=== PATIENT | male | born 1995 | race American Indian/Alaskan Native ===

== ENCOUNTER 2019-07-23 14:17 | Observation (INO) | payer OTHER ==
--- NOTE | 2019-07-23 17:10 | Event Note ---
ED Screening Note Date of service: 07/23/19 Time: 17:06 ED Screening Note: This is a 24 y.o. M. that presents to the ER with chest pain radiating to back. Patient reports history of sickle cell and think he is in crisis. Reports sharp pain with inhalation and SOB. This initial assessment/diagnostic orders/clinical plan/treatment(s) is/are subject to change based on patients health status, clinical progression and re- assessment by fellow clinical providers in the ED. Further treatment and workup at subsequent clinical providers discretion. Patient/guardian urged not to elope from the ED as their condition may be serious if not clinically assessed and managed. Initial orders include: Labs CXR
--- NOTE | 2019-07-23 17:55 | XRay Report ---
CHEST PA AND LATERAL VIEWS INDICATION: chest pain and dyspnea. COMPARISON: None FINDINGS: Support devices: None Heart: Normal Lungs/Pleura: No acute pulmonary or pleural findings. IMPRESSION: 1. No significant abnormality. Signer Name: Jose Aguilar MD Signed: 07/23/2019 5:51 PM Workstation Name: [id number]
[2019-07-23 19:04] LABS: Hematocrit 35.8 % (35.5-45.6); Hemoglobin 12.5 gm/dl (11.8-15.2); Mean Corpuscular HGB Conc 35 % (32-34); Mean Corpuscular Volume 77 fl (84-94); Platelet Count 315 K/mm3 (140-440); Red Blood Count 4.67 M/mm3 (3.65-5.03); Red Cell Distribution Width 19.1 % (13.2-15.2)
[2019-07-23] MEDS ORDERED: KETOROLAC 60 MG/2 ML INJ IM ONE (20:25)
[2019-07-23] MEDS ORDERED: HYDROmorphone 1 MG/1 ML INJ IM ONE (20:25)
[2019-07-23] MEDS ORDERED: ONDANSETRON 4 MG/2 ML INJ IM ONE (20:25)
--- NOTE | 2019-07-23 21:11 | Emergency Department Report ---
ED General Adult HPI - General Chief complaint: Sickle Cell Crisis Stated complaint: SICKLE CELL CRISIS Time Seen by Provider: 07/23/19 17:06 Source: patient Mode of arrival: Ambulatory Limitations: No Limitations - History of Present Illness Initial comments: The patient presents to the emergency department with a chief complaint of sickle cell crisis. Patient states that for the last 24 hours since had pain to his back, ribs, hips. Patient describes the pain as a 10 out of 10 consistent with prior sickle cell crises. Patient denies any chest pain, shortness breath, or headache. -: Sudden Location: back, pelvis, upper extremity Radiation: non-radiation Severity scale (0 -10): 10 Quality: stabbing, sharp Consistency: constant Improves with: none Worsens with: none Associated Symptoms: denies other symptoms Treatments Prior to Arrival: none - Related Data Allergies Allergy/AdvReac Type Severity Reaction Status Date / Time No Known Allergies Allergy Unverified 07/23/19 17:09 ED Review of Systems ROS: Stated complaint: SICKLE CELL CRISIS Other details as noted in HPI Comment: All other systems reviewed and negative Constitutional: denies: chills, fever Eyes: denies: eye pain, eye discharge, vision change ENT: denies: ear pain, throat pain Respiratory: denies: cough, shortness of breath, wheezing Cardiovascular: denies: chest pain, palpitations Endocrine: no symptoms reported Gastrointestinal: denies: abdominal pain, nausea, diarrhea Genitourinary: denies: urgency, dysuria Musculoskeletal: denies: back pain, joint swelling, arthralgia Skin: denies: rash, lesions Neurological: denies: headache, weakness, paresthesias Psychiatric: denies: anxiety, depression Hematological/Lymphatic: denies: easy bleeding, easy bruising ED Past Medical Hx - Social History Smoking Status: Never Smoker Substance Use Type: None ED Physical Exam - General Limitations: No Limitations General appearance: alert, in no apparent distress - Head Head exam: Present: atraumatic, normocephalic - Eye Eye exam: Present: normal appearance - ENT ENT exam: Present: mucous membranes dry - Neck Neck exam: Present: normal inspection - Respiratory Respiratory exam: Present: normal lung sounds bilaterally. Absent: respiratory distress - Cardiovascular Cardiovascular Exam: Present: normal rhythm, tachycardia. Absent: systolic murmur, diastolic murmur, rubs, gallop - GI/Abdominal GI/Abdominal exam: Present: soft, normal bowel sounds. Absent: distended, tenderness - Rectal Rectal exam: Present: deferred - Extremities Exam Extremities exam: Present: normal inspection - Back Exam Back exam: Present: normal inspection - Neurological Exam Neurological exam: Present: alert, oriented X3, CN II-XII intact. Absent: motor sensory deficit - Psychiatric Psychiatric exam: Present: normal affect, normal mood - Skin Skin exam: Present: warm, dry, intact, normal color. Absent: rash ED Course Vital Signs 07/23/19 17:07 Temperature 98.7 F Pulse Rate 74 Respiratory 18 Rate Blood Pressure 119/100 O2 Sat by Pulse 99 Oximetry ED Medical Decision Making - Lab Data Result diagrams: 07/23/19 18:26 Lab Results 07/23/19 Range/Units 18:26 WBC 8.5 (4.5-11.0) K/mm3 RBC 4.67 (3.65-5.03) M/mm3 Hgb 12.5 (11.8-15.2) gm/dl Hct 35.8 (35.5-45.6) % MCV 77 L (84-94) fl MCH 27 L (28-32) pg MCHC 35 H (32-34) % RDW 19.1 H (13.2-15.2) % Plt Count 315 (140-440) K/mm3 [place] % (Auto) Shipping And Receiving Assistant Add Manual Diff Complete Total Counted 100 Seg Neuts % (Manual) 57.0 (40.0-70.0) % Band Neutrophils % 0 % Lymphocytes % (Manual) 32.0 (13.4-35.0) % Reactive Lymphs % (Man) 0 % Monocytes % (Manual) 9.0 H (0.0-7.3) % Eosinophils % (Manual) 2.0 (0.0-4.3) % Basophils % (Manual) 0 (0.0-1.8) % Metamyelocytes % 0 % Myelocytes % 0 % Promyelocytes % 0 % Blast Cells % 0 % Nucleated RBC % Not Reportable Seg Neutrophils # Man 4.8 (1.8-7.7) K/mm3 Band Neutrophils # 0.0 K/mm3 Lymphocytes # (Manual) 2.7 (1.2-5.4) K/mm3 Abs React Lymphs (Man) 0.0 K/mm3 Monocytes # (Manual) 0.8 (0.0-0.8) K/mm3 Eosinophils # (Manual) 0.2 (0.0-0.4) K/mm3 Basophils # (Manual) 0.0 (0.0-0.1) K/mm3 Metamyelocytes # 0.0 K/mm3 Myelocytes # 0.0 K/mm3 Promyelocytes # 0.0 K/mm3 Blast Cells # 0.0 K/mm3 WBC Morphology Not Reportable Hypersegmented Neuts Not Reportable Hyposegmented Neuts Not Reportable Hypogranular Neuts Not Reportable Smudge Cells Not Reportable Toxic Granulation Not Reportable Toxic Vacuolation Not Reportable Dohle Bodies Not Reportable Pelger-Huet Anomaly Not Reportable Britt Rods Not Reportable Platelet Estimate Consistent w auto Clumped Platelets Not Reportable Plt Clumps, EDTA Not Reportable Large Platelets Not Reportable Giant Platelets Not Reportable Platelet Satelliting Not Reportable Plt Morphology Comment Not Reportable RBC Morphology Not Reportable Dimorphic RBCs Not Reportable Polychromasia Not Reportable Hypochromasia 1+ Poikilocytosis Not Reportable Anisocytosis 1+ Microcytosis Not Reportable Macrocytosis Not Reportable Spherocytes Not Reportable Pappenheimer Bodies Not Reportable Sickle Cells Not Reportable Target Cells 2+ Tear Drop Cells Not Reportable Ovalocytes Not Reportable Helmet Cells Not Reportable Shetty-[place] Bodies Not Reportable [place] Rings Not Reportable [place] Cells Not Reportable Bite Cells Not Reportable Crenated Cell Not Reportable Elliptocytes Not Reportable Acanthocytes (Spur) Not Reportable Rouleaux Not Reportable Hemoglobin C Crystals Not Reportable Schistocytes Not Reportable Malaria parasites Not Reportable Percent Retic 2.64 H (0.78-2.58) % Ketan Bodies Not Reportable Hem Pathologist Commnt No - Radiology Data Radiology results: report reviewed - Medical Decision Making Patient had a liter IV fluid, 60 mg of Toradol IM and 4 mg of Dilaudid without improvement of his symptoms. Critical care attestation.: If time is entered above; I have spent that time in minutes in the direct care of this critically ill patient, excluding procedure time. ED Disposition Clinical Impression: Sickle cell pain crisis Disposition: OP ADMIT IP TO THIS HOSP Is pt being admited?: Yes Does the pt Need Aspirin: No Condition: Fair
[2019-07-23] MEDS ORDERED: HYDROmorphone 1 MG/1 ML INJ IV ONE ×3 (21:37→22:30)
[2019-07-23] MEDS ORDERED: SODIUM CHLORIDE 0.9% 1000 ML 1,000 ML IV ONE (21:38)
[2019-07-23 22:58] LABS: Basophils % (Manual) 0 % (0.0-1.8); Total Cells Counted 100
[2019-07-23 22:59] LABS: Anisocytosis 1+; Target Cells 2+
[2019-07-23 23:00] LABS: Hypochromasia 1+; Platelet Estimate Consistent w Auto
[2019-07-24] MEDS ORDERED: HYDROmorphone 1 MG/1 ML INJ IV PRN (00:08)
[2019-07-24] MEDS ORDERED: ACETAMINOPHEN 325 MG TAB PO PRN (00:09)
[2019-07-24] MEDS ORDERED: ONDANSETRON 4 MG/2 ML INJ IV PRN (00:09)
[2019-07-24] MEDS ORDERED: SODIUM CHLORIDE 0.9% 1000 ML 1,000 ML IV SCH (00:15)
[2019-07-24] MEDS: HYDROmorphone 1 MG/1 ML INJ IV PRN ×5 (01:30→11:10)
[2019-07-24] MEDS ORDERED: HYDROmorphone 1 MG/1 ML INJ ONE (01:31)
[2019-07-24] MEDS: TEMAZEPAM 15 MG CAP PO SCH ×2 (02:30→03:31)
--- NOTE | 2019-07-24 06:20 | History and Physical Report ---
CHIEF COMPLAINT: Generalized body pain, including chest pain. HISTORY OF PRESENTING ILLNESS: The patient is a 24-year-old male with past medical history of sickle cell anemia, presenting with generalized body pain and also chest pain that occurs with movement and breathing. Symptoms started yesterday morning, 07/23/2019. There was no history of shortness of breath. No history of nausea or vomiting and no history of fever, chills or cough. The patient presented to the Emergency Room, where he was given about 4 doses of Dilaudid 1 mg about 1 hour apart with 1 dose of Toradol and still continued to have pain. There is no history of dizziness or jaundice and there is also no history of change in mental status. PAST MEDICAL HISTORY: Pertinent for sickle cell anemia. PAST SURGICAL HISTORY: Unremarkable. FAMILY HISTORY: There is no family history of sickle cell anemia. SOCIAL HISTORY: The patient does not smoke, does not drink alcohol and does not use illicit drug. MEDICATIONS: The patient said he was on folic acid, hydroxyurea and some pain around some opioid pain medication, but could not afford them because of problem with his insurance. ALLERGIES: There are no known drug allergies. REVIEW OF SYSTEMS: CONSTITUTIONAL: There is no fever, no chills, no diaphoresis. HEENT: There is no headache or sore throat. CARDIOVASCULAR SYSTEM: There is pleuritic chest pain with no orthopnea. RESPIRATORY SYSTEM: There is no shortness of breath or cough. GASTROINTESTINAL SYSTEM: There is no nausea, no vomiting, no abdominal pain, diarrhea or constipation. NEUROLOGICAL SYSTEM: There is no numbness, no dizziness, no altered mental status. MUSCULOSKELETAL SYSTEM: There is generalized body pain, with no joint swelling. DERMATOLOGICAL SYSTEM: There is no skin rash and there is no jaundice. There is no itching. GENITOURINARY SYSTEM: There is no dysuria, hematuria, or flank pain. Rest of system review is normal. PHYSICAL EXAMINATION: GENERAL: At the time of exam, the patient was found to be alert, oriented x3 and in mild to moderate distress due to generalized body pain. VITAL SIGNS: At the initial time of presentation showed temperature of 98.7 degrees Fahrenheit, pulse of 74, respirations 18, blood pressure 119/100, O2 sat of 99% on room air. HEENT: Showed pupils to be equal, round, reactive to light and accommodating. Extraocular muscles are intact. NECK: Supple with no JVD or carotid bruit. CARDIOVASCULAR SYSTEM: Showed normal first and second heart sounds with no gallops or murmurs. RESPIRATORY SYSTEM: Showed good air entry on both sides of the lungs with no abnormal breath sounds. GASTROINTESTINAL SYSTEM: Show abdomen to be full, soft, nontender with no organomegaly or rigidity. NEUROLOGIC: Showed no focal deficit. MUSCULOSKELETAL SYSTEM: Showed no joint swelling or tenderness. DERMATOLOGICAL SKIN: Showed no skin rash. GENITOURINARY SYSTEM: Showing no costovertebral angle tenderness. PERTINENT LABORATORY AND IMAGING STUDIES: The patient has CBC done with normal white count, normal hemoglobin and normal hematocrit with CBC differential showing elevated monocyte count of 9%, and the patient's percentage retic value is high with a value of 2.64. IMAGING STUDIES: The patient had chest x-ray done that shows no acute cardiopulmonary lesion. DIAGNOSIS: Sickle cell pain crisis. PLAN OF CARE: 1. The patient will be placed on observation on the medical/surgical harris. 2. The patient will be on IV normal saline running at 125 mL an hour. 3. The patient will be on IV Dilaudid 2 mg q.3 hours p.r.n. pain. 4. The patient will be on IV Zofran 4 mg every 8 hours as needed for nausea and vomiting and will be on temazepam 15 mg by mouth at night x 1 dose. 5. The patient will be on Tylenol 650 mg by mouth every 4 hour for fever and headache. JOB# [id number] OCN/NTS
[2019-07-24 08:41] VITALS: BP 117/76
[2019-07-24] MEDS ORDERED: ENOXAPARIN 30 MG/0.3 ML INJ SUB-Q SCH (10:00)
--- NOTE | 2019-07-24 10:12 | Progress Note ---
Hospitalist Physical - Constitutional Vitals: Temp Pulse Resp BP Pulse Ox 98.2 F 63 18 117/76 100 07/24/19 04:30 07/24/19 08:39 07/24/19 04:30 07/24/19 08:39 07/24/19 08:39 Results - Labs CBC & Chem 7: 07/23/19 18:26 Labs: Laboratory Last Values WBC 8.5 K/mm3 (4.5-11.0) 07/23/19 18:26 RBC 4.67 M/mm3 (3.65-5.03) 07/23/19 18:26 Hgb 12.5 gm/dl (11.8-15.2) 07/23/19 18:26 Hct 35.8 % (35.5-45.6) 07/23/19 18:26 MCV 77 fl (84-94) L 07/23/19 18:26 MCH 27 pg (28-32) L 07/23/19 18:26 MCHC 35 % (32-34) H 07/23/19 18:26 RDW 19.1 % (13.2-15.2) H 07/23/19 18:26 Plt Count 315 K/mm3 (140-440) 07/23/19 18:26 [place] % (Auto) Field Marketing Lead 07/23/19 18:26 Add Manual Diff Complete 07/23/19 18:26 Total Counted 100 07/23/19 18:26 Seg Neuts % (Manual) 57.0 % (40.0-70.0) 07/23/19 18:26 Band Neutrophils % 0 % 07/23/19 18:26 Lymphocytes % (Manual) 32.0 % (13.4-35.0) 07/23/19 18:26 Reactive Lymphs % (Man) 0 % 07/23/19 18:26 Monocytes % (Manual) 9.0 % (0.0-7.3) H 07/23/19 18:26 Eosinophils % (Manual) 2.0 % (0.0-4.3) 07/23/19 18:26 Basophils % (Manual) 0 % (0.0-1.8) 07/23/19 18:26 Metamyelocytes % 0 % 07/23/19 18:26 Myelocytes % 0 % 07/23/19 18:26 Promyelocytes % 0 % 07/23/19 18:26 Blast Cells % 0 % 07/23/19 18:26 Nucleated RBC % Not Reportable 07/23/19 18:26 Seg Neutrophils # Man 4.8 K/mm3 (1.8-7.7) 07/23/19 18:26 Band Neutrophils # 0.0 K/mm3 07/23/19 18:26 Lymphocytes # (Manual) 2.7 K/mm3 (1.2-5.4) 07/23/19 18:26 Abs React Lymphs (Man) 0.0 K/mm3 07/23/19 18:26 Monocytes # (Manual) 0.8 K/mm3 (0.0-0.8) 07/23/19 18:26 Eosinophils # (Manual) 0.2 K/mm3 (0.0-0.4) 07/23/19 18:26 Basophils # (Manual) 0.0 K/mm3 (0.0-0.1) 07/23/19 18:26 Metamyelocytes # 0.0 K/mm3 07/23/19 18:26 Myelocytes # 0.0 K/mm3 07/23/19 18:26 Promyelocytes # 0.0 K/mm3 07/23/19 18:26 Blast Cells # 0.0 K/mm3 07/23/19 18:26 WBC Morphology Not Reportable 07/23/19 18:26 Hypersegmented Neuts Not Reportable 07/23/19 18:26 Hyposegmented Neuts Not Reportable 07/23/19 18:26 Hypogranular Neuts Not Reportable 07/23/19 18:26 Smudge Cells Not Reportable 07/23/19 18:26 Toxic Granulation Not Reportable 07/23/19 18:26 Toxic Vacuolation Not Reportable 07/23/19 18:26 Dohle Bodies Not Reportable 07/23/19 18:26 Pelger-Huet Anomaly Not Reportable 07/23/19 18:26 Britt Rods Not Reportable 07/23/19 18:26 Platelet Estimate Consistent w auto 07/23/19 18:26 Clumped Platelets Not Reportable 07/23/19 18:26 Plt Clumps, EDTA Not Reportable 07/23/19 18:26 Large Platelets Not Reportable 07/23/19 18:26 Giant Platelets Not Reportable 07/23/19 18:26 Platelet Satelliting Not Reportable 07/23/19 18:26 Plt Morphology Comment Not Reportable 07/23/19 18:26 RBC Morphology Not Reportable 07/23/19 18:26 Dimorphic RBCs Not Reportable 07/23/19 18:26 Polychromasia Not Reportable 07/23/19 18:26 Hypochromasia 1+ 07/23/19 18:26 Poikilocytosis Not Reportable 07/23/19 18:26 Anisocytosis 1+ 07/23/19 18:26 Microcytosis Not Reportable 07/23/19 18:26 Macrocytosis Not Reportable 07/23/19 18:26 Spherocytes Not Reportable 07/23/19 18:26 Pappenheimer Bodies Not Reportable 07/23/19 18:26 Sickle Cells Not Reportable 07/23/19 18:26 Target Cells 2+ 07/23/19 18:26 Tear Drop Cells Not Reportable 07/23/19 18:26 Ovalocytes Not Reportable 07/23/19 18:26 Helmet Cells Not Reportable 07/23/19 18:26 Shetty-[place] Bodies Not Reportable 07/23/19 18:26 [place] Rings Not Reportable 07/23/19 18:26 [place] Cells Not Reportable 07/23/19 18:26 Bite Cells Not Reportable 07/23/19 18:26 Crenated Cell Not Reportable 07/23/19 18:26 Elliptocytes Not Reportable 07/23/19 18:26 Acanthocytes (Spur) Not Reportable 07/23/19 18:26 Rouleaux Not Reportable 07/23/19 18:26 Hemoglobin C Crystals Not Reportable 07/23/19 18:26 Schistocytes Not Reportable 07/23/19 18:26 Malaria parasites Not Reportable 07/23/19 18:26 Percent Retic 2.64 % (0.78-2.58) H 07/23/19 18:26 Ketan Bodies Not Reportable 07/23/19 18:26 Hem Pathologist Commnt No 07/23/19 18:26 Active Medications - Current Medications Current Medications: Generic Name Dose Route Start Last Admin Trade Name Freq PRN Reason Stop Dose Admin Acetaminophen 650 mg 07/24/19 00:09 Tylenol PO Q4H PRN Pain, Mild (1-3) Enoxaparin Sodium 30 mg 07/24/19 10:00 Enoxaparin SUB-Q QDAY SHARON Hydromorphone HCl 1 mg 07/24/19 00:40 07/24/19 08:58 Dilaudid IV 1 mg Q2H PRN Administration Pain, Moderate (4-6) Sodium Chloride 1,000 mls @ 125 mls/hr 07/24/19 00:15 07/24/19 01:59 Nacl 0.9% 1000 Ml IV 125 mls/hr DIRECT SHARON Administration Ondansetron HCl 4 mg 07/24/19 00:09 Zofran IV Q8H PRN Nausea And Vomiting Temazepam 15 mg 07/24/19 02:10 07/24/19 03:31 Restoril PO 15 mg QHS SHARON Administration
[2019-07-24] MEDS ORDERED: HYDROmorphone 2 MG/1 ML INJ IV PRN (11:16)
--- NOTE | 2019-07-24 11:21 | Discharge Summary ---
Providers - Providers Date of Admission: 07/24/19 00:06 Date of discharge: 07/24/19 Attending physician: OLYA LOUISE Primary care physician: NITROCELLULOSE OPERATOR Hospitalization Reason for admission: Sickle cell crisis Condition: Fair Pertinent studies: CXR Hospital course: 24 yr old male patient with past history of Sickle cell disease was admitted through the emergency department with a chief complaint of gen body pains consistant with sickle cell crisis. Patient states that for the last 24 hours since had pain to his back, ribs, hips. Patient describes the pain as a 10 out of 10 consistent with prior sickle cell crises. Patient denies any chest pain, shortness breath, or headache.Managed with IV fluids,pain meds and supportive care. Patients symptoms significantly improved.No fever,no leukocytosis, with retic count of 2.6 Symptoms resolved.Today patient feels better,no new complaints,vital signs stable. Physical exam is unremarkable.Stable at discharge Disposition: DC-01 TO HOME OR SELFCARE Time spent for discharge: 32 min Core Measure Documentation - Palliative Care Palliative Care/ Comfort Measures: Not Applicable - Core Measures Any of the following diagnoses?: none Exam - Constitutional Vitals: Temp Pulse Resp BP Pulse Ox 98.2 F 63 18 117/76 100 07/24/19 04:30 07/24/19 10:48 07/24/19 04:30 07/24/19 08:39 07/24/19 10:48 General appearance: Present: mild distress, well-nourished - EENT Eyes: Present: PERRL, EOM intact - Neck Neck: Present: supple, normal ROM - Respiratory Respiratory effort: normal Respiratory: bilateral: diminished, negative: rales, rhonchi, wheezing - Cardiovascular Rhythm: regular Heart Sounds: Present: S1 & S2 - Extremities Extremities: no ischemia, No edema - Abdominal General gastrointestinal: Present: soft, non-tender, non-distended, normal bowel sounds - Integumentary Integumentary: Present: clear, warm - Musculoskeletal Musculoskeletal: strength equal bilaterally - Psychiatric Psychiatric: appropriate mood/affect, cooperative - Neurologic Neurologic: CNII-XII intact, moves all extremities Plan Activity: advance as tolerated Diet: regular Additional Instructions: Advised to follow with sickle cell clinic/physician in 2-3 days Follow up with: AZAR REYES MD [Primary Care Provider] - 3-5 Days EDITA MARTÍNEZ MD [Staff Physician] - 7 Days Prescriptions: Oxycodone HCl [oxyCODONE] 10 mg PO BID PRN #6 tablet PRN Reason: Pain , Severe (7-10)
== END 2019-07-24 11:52 | disposition home or self-care (01) ==
LOC: ED 14:17 → 4A 07-24 00:06
PROVIDERS: ADMIT Internal Medicine; ATTEND Internal Medicine
DX: D57.00 Hb-SS disease with crisis, unspecified (principal); Z79.899 Other long term (current) drug therapy
CPT/HCPCS: 36415; 71046; 85007; 85025; 85045; 96372; 96374; 96376; 99284; G0378; J1170; J1885; J2405; J7030